=== PATIENT | male | born 1990 | race Caucasian/White ===

== ENCOUNTER 2019-10-22 23:29 | Emergency (ER) | payer MEDICAID ==
[2019-10-23 00:11] LABS: Amphetamine Screen,Urine Not Detected (NotDetected); Barbiturate Screen,Urine Not Detected (NotDetected); Benzodiazepines Screen,Urine Not Detected (NotDetected); Cocaine Screen,Urine Not Detected (NotDetected); Methadone Screen, Urine Not Detected (NotDetected); Opiate Screen,Urine Not Detected (NotDetected); Oxycodone Screen, Urine Not Detected (NotDetected); Phencyclidine Screen,Urine Not Detected (NotDetected); Tricyclic Antidepressant,Urine Not Detected (NotDetected); Urn Cannabinoid Scrn Not Detected (NotDetected)
[2019-10-23] MEDS ORDERED: IBUPROFEN 600 MG TAB PO STA (00:34)
--- NOTE | 2019-10-23 01:29 | ED ---
Psych HPI - General Chief Complaint: Psychiatric Symptoms Stated Complaint: Mental Health Time Seen by Provider: 10/22/19 23:43 Source: patient Mode of arrival: ambulatory - History of Present Illness Initial Comments: this patient is a 29-year-old man who presents to obtain help in finding a drug rehabilitation program. The patient states that he was just released from correction and is concerned that he may go back to using drugs. The patient when directly questioned states that he is not having suicidal or homicidal ideation. He is not having any audio or visual hallucinations. He is ely for safety. Complaint: other -: days(s) Associated Psychiatric Symptoms: other History of same: No Improves With: none Worsens With: none Context: significant life stressor Associated Symptoms: denies other symptoms - Related Data Allergies Allergy/AdvReac Type Severity Reaction Status Date / Time Sulfa (Sulfonamide Allergy Anaphylaxis Verified 10/22/19 23:36 Antibiotics) tetracycline Allergy Unknown Verified 10/22/19 23:36 Review of Systems ROS Statement: Those systems with pertinent positive or pertinent negative responses have been documented in the HPI. ROS Other: All systems not noted in ROS Statement are negative. Constitutional: Denies: fever Respiratory: Denies: cough, dyspnea Cardiovascular: Denies: chest pain, syncope Gastrointestinal: Denies: abdominal pain, vomiting, diarrhea Genitourinary: Denies: dysuria Musculoskeletal: Denies: back pain Skin: Denies: rash Neurological: Denies: headache Psychiatric: Denies: depression, auditory hallucinations, visual hallucinations, homicidal thoughts, suicidal thoughts Past Medical History Past Medical History: No Reported History History of Any Multi-Drug Resistant Organisms: None Reported Past Surgical History: Appendectomy, Tonsillectomy Past Psychological History: Anxiety, Bipolar Smoking Status: Current every day smoker Past Alcohol Use History: None Reported Past Drug Use History: None Reported General Exam Limitations: no limitations General appearance: alert, in no apparent distress Head exam: Present: atraumatic, normocephalic Eye exam: Present: normal appearance. Absent: scleral icterus, conjunctival injection Respiratory exam: Present: normal lung sounds bilaterally. Absent: respiratory distress, wheezes, rales, rhonchi, stridor Cardiovascular Exam: Present: regular rate, normal rhythm, normal heart sounds. Absent: systolic murmur, diastolic murmur, rubs, gallop GI/Abdominal exam: Present: soft. Absent: tenderness Neurological exam: Present: alert Psychiatric exam: Present: normal affect, normal mood. Absent: homicidal ideation, suicidal ideation Skin exam: Present: warm, dry, intact, normal color. Absent: rash Course Vital Signs 10/22/19 10/23/19 23:33 01:32 Temperature 97.4 F L 98.3 F Pulse Rate 86 69 Respiratory 18 16 Rate Blood Pressure 132/86 133/85 O2 Sat by Pulse 98 99 Oximetry Medical Decision Making - Medical Decision Making patient is a 29-year-old man who states that he had just been released from correction and wanted information for possible referral for drug rehabilitation treatment. The patient is given local resources including outpatient and inpatient rehabilitation is. We discussed appropriate follow-up as well as return parameters and patient stable for release - Lab Data Lab Results 10/22/19 Range/Units 23:42 Urine Opiates Screen Not Detected (NotDetected) Ur Oxycodone Screen Not Detected (NotDetected) Urine Methadone Screen Not Detected (NotDetected) Ur Propoxyphene Screen Not Detected (NotDetected) Ur Barbiturates Screen Not Detected (NotDetected) U Tricyclic Antidepress Not Detected (NotDetected) Ur Phencyclidine Scrn Not Detected (NotDetected) Ur Amphetamines Screen Not Detected (NotDetected) U Methamphetamines Scrn Not Detected (NotDetected) U Benzodiazepines Scrn Not Detected (NotDetected) Urine Cocaine Screen Not Detected (NotDetected) U Marijuana (THC) Screen Not Detected (NotDetected) Disposition Clinical Impression: Adjustment reaction of adult life Disposition: HOME SELF-CARE Condition: Good Instructions (If sedation given, give patient instructions): Anxiety (ED) Is patient prescribed a controlled substance at d/c from ED?: No Referrals: None,Stated [Primary Care Provider] - 1-2 days
[2019-10-23 01:37] VITALS: BP 133/85; PULSE 69; RESP 16; TEMP 98.3
== END 2019-10-23 01:37 | disposition home or self-care (01) ==
LOC: EC 23:29
DX: F43.22 Adjustment disorder with anxiety (principal); F17.200 Nicotine dependence, unspecified, uncomplicated; Z88.1 Allergy status to other antibiotic agents; Z88.2 Allergy status to sulfonamides
CPT/HCPCS: 80306; 82075; 99283

== ENCOUNTER 2019-11-01 18:02 | Inpatient (IN) | payer MEDICAID, OTHER ==
[2019-11-01 20:00] LABS: Amphetamine Screen,Urine Detected (NotDetected); Barbiturate Screen,Urine Not Detected (NotDetected); Benzodiazepines Screen,Urine Not Detected (NotDetected); Cocaine Screen,Urine Not Detected (NotDetected); Methadone Screen, Urine Not Detected (NotDetected); Opiate Screen,Urine Not Detected (NotDetected); Oxycodone Screen, Urine Not Detected (NotDetected); Phencyclidine Screen,Urine Not Detected (NotDetected); Tricyclic Antidepressant,Urine Not Detected (NotDetected); Urn Cannabinoid Scrn Detected (NotDetected)
--- NOTE | 2019-11-01 20:17 | ED ---
Psych HPI - General Chief Complaint: Psychiatric Symptoms Stated Complaint: Mental health/weakness Time Seen by Provider: 11/01/19 18:18 Source: patient Mode of arrival: wheelchair - History of Present Illness Initial Comments: 29-year-old male patient presents to the emergency department today for evaluation of suicidal ideation. Patient states for the last 2 days he has been feeling suicidal. His plan is to jump off a bridge. Patient states he has been admitted inpatient for mental health but is unsure which facility. Patient denies taking any medications for depression or anxiety. He does admit to using methamphetamines and heroin. Denies any alcohol use. States he is having body aches but denies any other physical symptoms or concerns. Patient denies any recent rash, fever, chills, cough, shortness of breath, chest pain, abdominal pain, nausea, vomiting, diarrhea, constipation, back pain, numbness, tingling, dizziness, weakness, hematuria, dysuria, urinary urgency, urinary frequency, headache, visual changes, or any other complaints. - Related Data Allergies Allergy/AdvReac Type Severity Reaction Status Date / Time Sulfa (Sulfonamide Allergy Anaphylaxis Verified 10/22/19 23:36 Antibiotics) tetracycline Allergy Unknown Verified 10/22/19 23:36 Review of Systems ROS Statement: Those systems with pertinent positive or pertinent negative responses have been documented in the HPI. ROS Other: All systems not noted in ROS Statement are negative. Past Medical History Past Medical History: No Reported History History of Any Multi-Drug Resistant Organisms: None Reported Past Surgical History: Appendectomy, Tonsillectomy Past Psychological History: Anxiety, Bipolar Smoking Status: Current every day smoker Past Alcohol Use History: Occasional Past Drug Use History: None Reported General Exam Limitations: no limitations General appearance: alert, in no apparent distress, other (This is a well- developed, well-nourished adult male patient in no acute distress. Vital signs upon presentation are temperature 98.5F, pulse 105, respirations 18, blood pressure 130/83, pulse ox 99% on room air.) Eye exam: Present: normal appearance, PERRL, EOMI. Absent: scleral icterus, conjunctival injection, periorbital swelling ENT exam: Present: normal exam, normal oropharynx, mucous membranes moist Respiratory exam: Present: normal lung sounds bilaterally. Absent: respiratory distress, wheezes, rales, rhonchi, stridor Cardiovascular Exam: Present: regular rate, normal rhythm, normal heart sounds. Absent: systolic murmur, diastolic murmur, rubs, gallop, clicks Neurological exam: Present: alert, oriented X3, CN II-XII intact Psychiatric exam: Present: normal mood, anxious Skin exam: Present: warm, dry, intact, normal color. Absent: rash Course Vital Signs 11/01/19 11/01/19 18:09 21:27 Temperature 98.5 F Pulse Rate 105 H 100 Respiratory 18 16 Rate Blood Pressure 130/83 130/87 O2 Sat by Pulse 99 98 Oximetry - Reevaluation(s) Reevaluation #1: 11/01/19 20:17 Care handed over to my attending physician Dr. Archer at 2014. 11/01/19 20:17 Medical Decision Making - Lab Data Result diagrams: 11/02/19 06:52 11/02/19 06:52 Lab Results 11/01/19 Range/Units 19:40 Urine Opiates Screen Not Detected (NotDetected) Ur Oxycodone Screen Not Detected (NotDetected) Urine Methadone Screen Not Detected (NotDetected) Ur Propoxyphene Screen Not Detected (NotDetected) Ur Barbiturates Screen Not Detected (NotDetected) U Tricyclic Antidepress Not Detected (NotDetected) Ur Phencyclidine Scrn Not Detected (NotDetected) Ur Amphetamines Screen Detected H (NotDetected) U Methamphetamines Scrn Detected H (NotDetected) U Benzodiazepines Scrn Not Detected (NotDetected) Urine Cocaine Screen Not Detected (NotDetected) U Marijuana (THC) Screen Detected H (NotDetected) Disposition Clinical Impression: Suicidal ideation Disposition: TRANSFER TO PSYCH HOSP/UNIT Condition: Serious - Out of Hospital Transfer - Req. Specs Out of Hospital Transfer - Requested Specifics: Psychiatric Non-ICU ([facility])
[2019-11-02 07:35] LABS: Basophils # (A) 0.1 k/uL (0-0.2); Basophils % (A) 0 %; Eosinophils # (A) 0.1 k/uL (0-0.7); Eosinophils % (A) 1 %; HGB 15.3 gm/dL (13.0-17.5); Lymphocytes # (A) 1.8 k/uL (1.0-4.8); Lymphocytes % (A) 12 %; MCH 29.1 pg (25.0-35.0); MCHC 33.3 g/dL (31.0-37.0); MCV 87.5 fL (80.0-100.0); Mean Platelet Volume 7.7; Monocytes # (A) 0.9 k/uL (0-1.0); Monocytes % (A) 6 %; Neutrophils # (A) 11.8 k/uL (1.3-7.7); Neutrophils % (A) 78 %; Platelet Count 273 k/uL (150-450); RBC 5.25 m/uL (4.30-5.90); RDW 12.8 % (11.5-15.5); WBC 15.1 k/uL (3.8-10.6)
[2019-11-02 07:52] LABS: ALT 42 U/L (4-49); AST 41 U/L (17-59); African American GFR (CKD) >90 (>60 ml/min/1.73 sqM); Albumin 4.4 g/dL (3.5-5.0); Alkaline Phosphatase 142 U/L (38-126); Anion Gap 14 mmol/L; Bilirubin, Delta 0.2 mg/dL (0.0-0.2); Bilirubin,Unconjugated 1.5 mg/dL (0.0-1.1); Blood Urea Nitrogen 16 mg/dL (9-20); Calcium 9.4 mg/dL (8.4-10.2); Carbon Dioxide 21 mmol/L (22-30); Chloride 104 mmol/L (98-107); Cholesterol 120 mg/dL (<200); Glucose 72 mg/dL (74-99); HDL Cholesterol 44 mg/dL (40-60); LDL Cholesterol,Calculated 63 mg/dL (0-99); Non-African American GFR(CKD) >90 (>60 ml/min/1.73 sqM); Potassium 3.9 mmol/L (3.5-5.1); Sodium 139 mmol/L (137-145); Total Bilirubin 1.7 mg/dL (0.2-1.3); Total Protein 7.9 g/dL (6.3-8.2); Triglycerides 66 mg/dL (<150)
[2019-11-02] MEDS ORDERED: MAG HYDROX/AL HYDROX/SIMETH 30 ML CUP PO PRN (08:00)
[2019-11-02] MEDS: NICOTINE 14MG/24HR PATCH TRANSDERM SCH (08:29)
[2019-11-02] MEDS: ACETAMINOPHEN TAB 325 MG TAB PO PRN ×2 (08:30→21:59)
[2019-11-02] MEDS ORDERED: ZIPRASIDONE 20 MG VIAL IM PRN (09:00)
[2019-11-02] MEDS ORDERED: MAGNESIUM HYDROXIDE 2,400 MG/10 ML CUP PO PRN (09:00)
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
[2019-11-02] MEDS: lamoTRIgine 25 MG TAB PO SCH ×2 (12:49→21:59)
[2019-11-02 15:17] LABS: Hemoglobin A1C 4.1 % (4.0-6.0)
--- NOTE | 2019-11-02 16:07 | XR ---
EXAMINATION TYPE: XR chest 2V DATE OF EXAM: 11/02/2019 COMPARISON: None HISTORY: 29-year-old male with leukocytosis TECHNIQUE: Frontal and lateral views FINDINGS: Heart normal size. Aortopulmonary vasculature within normal limits. Scattered mild central peribronch ial cuffing is noted. No consolidation or pleural effusion. IMPRESSION: Peribronchial cuffing can be seen with bronchitis or asthma. No focal infiltrate at this time.
--- NOTE | 2019-11-02 17:07 | P.HPMEDMHU ---
History of Present Illness H&P Date: 11/02/19 (Consult from [facility]) Chief Complaint: MHU HPI The patient is a 29-year-old male with a history of bipolar disorder and anxiety, asthma, smoking who presents to the ER that presented was admitted to the mental health unit with suicidal ideation with a plan to jump off a bridge. The patient has a history of asthma, illicit drug use and smoking and reports to a nonproductive cough over the last week, she denies any subjective fevers chills or night sweats and denies feeling short of breath. He reports a history of exercise-induced asthma and denies use of any recent inhalers. He denies any sick contacts or recent travel. On review of records patient was noted to have a white count of 15.1 and his UDS was positive for methamphetamines and THC and his total bilirubin was 1.7 on conjugated bilirubin is 1.5 Review of Systems Pertinent pauses per HPI all other review of systems otherwise negative Past Medical History Past Medical History: No Reported History History of Any Multi-Drug Resistant Organisms: None Reported Past Surgical History: Appendectomy, Tonsillectomy Past Psychological History: Anxiety, Bipolar Smoking Status: Current every day smoker Past Alcohol Use History: Occasional Past Drug Use History: None Reported Medications and Allergies Allergies Allergy/AdvReac Type Severity Reaction Status Date / Time Sulfa (Sulfonamide Allergy Anaphylaxis Verified 10/22/19 23:36 Antibiotics) tetracycline Allergy Unknown Verified 10/22/19 23:36 Physical Exam Vitals: Vital Signs Temp Pulse Pulse Resp BP BP Pulse Ox 11/02/19 13:06 98.1 F 11/02/19 06:56 97.2 F L 90 18 104/70 97 11/01/19 21:27 100 16 130/87 98 11/01/19 18:09 98.5 F 105 H 18 130/83 99 Intake and Output 11/02/19 11/02/19 11/02/19 06:59 14:59 22:59 Other: Weight 59.222 kg Constitutional: No acute distress, conversant, pleasant Eyes: Anicteric sclerae, moist conjunctiva, no lid-lag, PERRLA ENMT: NC/AT,Oropharynx clear, no erythema, exudates Neck:Supple, FROM, no masses, or JVD, No carotid bruits; No thyromegaly Lungs: Clear to auscultation, Clear to percussion, Normal respiratory effort, no accessory muscle use Cardiovascular: Heart regular in rate and rhythm, No murmurs, gallops, or rubs no peripheral edema Abdominal: Soft Nontender, nom distended, no guarding, no rebound or rigidity, Normoactive bowel sounds No hepatomegaly, No splenomegaly, No palpable mass No abdominal wall hernia noted Skin: Normal temperature, tone, texture, turgor, No induration No subcutaneous nodules, No rash, lesions, No ulcers Extremities:No digital cyanosis No clubbing, Pedal pulses intact and symmetrical Radial pulses intact and symmetrical Normal gait and station, No calf tenderness Psychiatric: Alert and oriented to person, place and time, Appropriate affect Intact judgement Neuro: Muscles Strength 5/5 in all 4 extremities, Sensation to light touch grossly present throughout, Cranial nerves II-XII grossly intact. No focal sensory deficits Cranial Nerve Examination - Cranial Nerves Cranial Nerve II- Optic: Intact Cranial Nerve III- Oculomotor: Intact Cranial Nerve IV- Trochlear: Intact Cranial Nerve V- Trigeminal: Intact Cranial Nerve - Abducens: Intact Cranial Nerve VII- Facial: Intact Cranial Nerve VIII- Auditory: Intact Cranial Nerve IX- Glossopharyngeal: Intact Cranial Nerve X- Vagus: Intact Cranial Nerve XI- Accessory: Intact Cranial Nerve XII- Hypoglossal: Intact Results CBC & Chem 7: 11/02/19 06:52 11/02/19 06:52 Labs: Abnormal Lab Results - Last 24 Hours (Table) 11/01/19 11/02/19 11/02/19 Range/Units 19:40 06:52 06:52 WBC 15.1 H (3.8-10.6) k/uL Neutrophils # 11.8 H (1.3-7.7) k/uL Carbon Dioxide 21 L (22-30) mmol/L Glucose 72 L (74-99) mg/dL Total Bilirubin 1.7 H (0.2-1.3) mg/dL Unconjugated Bilirubin 1.5 H (0.0-1.1) mg/dL Alkaline Phosphatase 142 H (38-126) U/L TSH 0.324 L (0.465-4.680) mIU/L Ur Amphetamines Screen Detected H (NotDetected) U Methamphetamines Scrn Detected H (NotDetected) U Marijuana (THC) Screen Detected H (NotDetected) Assessment and Plan Assessment: Acute bronchitis Asthma Leukocytosis Methamphetamine abuse Marijuana abuse Suicidal ideation Plan: The patient is admitted to acute inpatient psychiatry team with suicidal ideation. On workup the patient was noted to have a white count of 16. Chest x-ray was ordered by me preemptively which showed peribronchial cuffing which she was seen in bronchitis and asthma. Clinically he denies any wheezing or shortness of breath, I plan to order Covid testing, with acute phase reactants. Patient's leukocytosis is treated to ongoing methamphetamine abuse. We'll follow-up his labs. Continue to follow his clinical course I appreciate the opportunity to be involved in this patient's care. For further questions please not hesitate to contact son inpatient team
[2019-11-02] MEDS: traZODone HCL 50 MG TAB PO SCH (21:59)
--- NOTE | 2019-11-03 09:32 | P.PN ---
Progress Note - Text Progress Note Date: 11/03/19 Interval History: Patient was seen laying down in his bed and was directable and agreeable to sp ranulfo with designer/writer in the office.. Patient appeared to be more cooperative today and more alert during conversation. He states that his mood has been mildly improving on the current medications and states that he slept throughout the night except to be woken up during the night for blood tests and by staff. He states that he has not gone to any groups so far and states that he would rather stick to himself at this point. He had some thoughts yesterday of trying to sign himself out AMA after talking to his girlfriend on the phone because "she needs help" however patient decided to continue on with the course and be going to rehab upon discharge. He states that he lost the number for the access line however will be making a call today. He states that his anxiety has been mildly improving. At this time patient denies any suicidal or homical ideations, intent or plan. Patient denies any auditory, visual hallucinations and denies any paranoia or delusions. Patient denies any side effects from the medications and has been compliant with meds. He denies any rash on his skin at this time. Mental Status Exam: General Appearance: Patient appears to be stated age is alert, directable, more cooperative today. Patient appears to have poor hygiene and grooming. Behavior: Patient is seated without any agitated behavior. More cooperative today. Speech: Patient's speech is fluent and nonpressured. Mood/Affect: Patient reports their mood is mildly improving, affect is congruent and constricted. Suicidality/Homicidality: Patient denies having any homicidal ideation intent or plan. He denies any suicidal ideations no intent or plan. Perceptions: Patient denies any visual hallucinations and denies any auditory hallucinations Though content/process: There is no evidence of any delusional thought content and thought process is linear and goal-directed. [place]. Memory and concentration: AOX3, grossly intact for the purposes of this session. Judgment and insight: poor, mildly improving. Assessment Depressive disorder unspecified, rule out substance-induced depressive disorder versus major depressive disorder versus bipolar depression. Anxiety disorder unspecified Stimulant/methamphetamine abuse Opiate use disorder Cannabis use disorder Nicotine dependence Plan: -Patient continues to meet criteria for inpatient psychiatric admission for symptom stabilization and safety. Patient has signed adult voluntary form and medication consent and was placed in patient's chart. -Medications: Will increase Lamictal to 50 mg twice a day for mood stabilization/depression, trazodone continued at 50 mg nightly for insomnia/mood. -When necessary Geodon for agitation/aggression. -Patient was seen by hospitalist yesterday and had more blood work done, covid test negative. -NRT - nicotine patch -SW on board for discharge planning. Encouraged the patient to participate in milieu. At this time patient is continuing to be willing to go to rehab, social work associate to give patient access number and patient to make a call today.
[2019-11-03] MEDS: NICOTINE 14MG/24HR PATCH TRANSDERM SCH (09:38)
[2019-11-03] MEDS: lamoTRIgine 25 MG TAB PO SCH ×3 (09:38→20:22)
[2019-11-03 10:29] LABS: Ferritin 101.5 ng/mL (22.0-322.0); Prolactin 6.5 ng/mL (2.1-17.7)
[2019-11-03] MEDS: traZODone HCL 50 MG TAB PO SCH (20:22)
[2019-11-03] MEDS ORDERED: IBUPROFEN 400 MG TAB PO PRN (20:39)
[2019-11-03] MEDS ORDERED: ACETAMINOPHEN TAB 325 MG TAB PO PRN (20:41)
[2019-11-03] MEDS ORDERED: AZITHROMYCIN 500 MG TAB PO STA (20:41)
[2019-11-03] MEDS ORDERED: ONDANSETRON ODT 4 MG TAB PO PRN (20:43)
[2019-11-03] MEDS ORDERED: AZITHROMYCIN 500 MG TAB PO SCH (20:45)
[2019-11-04 00:15] LABS: Appearance,Urine Clear (Clear); Bilirubin,Urine Negative (Negative); Blood,Urine Negative (Negative); Color,Urine Yellow; Glucose,Urine (UA) Negative (Negative); Ketones,Urine Negative (Negative); Leukocyte Esterase,Urine Negative (Negative); Nitrite,Urine Negative (Negative); Protein,Urine Negative (Negative); Specific Gravity,Urine 1.017 (1.001-1.035)
[2019-11-04 06:50] VITALS: BP 119/68; PULSE 66; RESP 17
[2019-11-04] MEDS: NICOTINE 14MG/24HR PATCH TRANSDERM SCH (08:27)
[2019-11-04] MEDS: lamoTRIgine 25 MG TAB PO SCH (08:28)
[2019-11-04] MEDS ORDERED: AZITHROMYCIN 250 MG TAB PO SCH (09:00)
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
[2019-11-04 13:08] VITALS: TEMP 98.8
== END 2019-11-04 13:07 | disposition home or self-care (01) | DRG 881 ==
LOC: EC 18:02 → 3MHU 11-02 06:00
PROVIDERS: ADMIT Psychiatry & Neurology Psychiatry; ATTEND Psychiatry & Neurology Psychiatry
DX: F32.9 Major depressive disorder, single episode, unspecified (principal); R45.851 Suicidal ideations; R50.9 Fever, unspecified; D72.829 Elevated white blood cell count, unspecified; F11.10 Opioid abuse, uncomplicated; F12.10 Cannabis abuse, uncomplicated; F15.10 Other stimulant abuse, uncomplicated; F17.210 Nicotine dependence, cigarettes, uncomplicated; F41.9 Anxiety disorder, unspecified; G47.00 Insomnia, unspecified; Z20.828 Contact with and (suspected) exposure to other viral communicable diseases; Z88.1 Allergy status to other antibiotic agents; Z88.2 Allergy status to sulfonamides; Z56.0 Unemployment, unspecified; Z81.8 Family history of other mental and behavioral disorders
CPT/HCPCS: 71046; 80053; 80061; 80306; 81003; 82075; 82248; 82728; 83036; 83615; 84146; 84443; 85025; 85379; 86140; 87040; 87502; 87635; 99285